=== PATIENT | male | born 1965 | race Caucasian/White ===

== ENCOUNTER 2020-10-04 06:58 | Day surgery (SDC) | payer OTHER, SELFPAY ==
[~2020-10-04] VITALS: Ht 170.2 cm; Wt 91.6 kg
[2020-10-04] MEDS ORDERED: fentaNYL citrate 0.05 MG/ML VIAL ONE (08:50)
[2020-10-04] MEDS ORDERED: MIDAZOLAM 2 MG/2 ML VIAL ONE (08:50)
[2020-10-04] MEDS ORDERED: LIDOCAINE 2% 100 MG/5 ML UJET TP ONE ×2 (08:51→10:40)
[2020-10-04] MEDS ORDERED: fentaNYL citrate 0.05 MG/ML VIAL IVP ONE (10:40)
== END 2020-10-04 10:45 | disposition home or self-care (01) ==
LOC: MDS 06:58 → MFCC 06:59 → MDS 10:45
PROVIDERS: ATTEND Internal Medicine Gastroenterology
DX: Z09 Encounter for follow-up examination after completed treatment for conditions other than malignant neoplasm (principal); K57.30 Diverticulosis of large intestine without perforation or abscess without bleeding; K21.00 Gastro-esophageal reflux disease with esophagitis, without bleeding; E66.9 Obesity, unspecified; Z68.31 Body mass index [BMI] 31.0-31.9, adult
CPT/HCPCS: 45378; 87426; J3010; J2250